=== PATIENT | male | born 1985 | race Caucasian/White ===

== ENCOUNTER 2020-08-16 12:20 | Outpatient (CLI) | payer BC, SELFPAY ==
--- NOTE | ~2020-08-16 | CT_ITS ---
EXAMINATION: CTA chest PE protocol EXAM DATE: 08/16/2020 13:42 INDICATION: Left calf DVT. Dyspnea, shortness of breath. Recent foot surgery. TECHNIQUE: Spiral CTA of the chest (pulmonary arteries) was performed with 100 cc Omnipaque 350 intr avenous contrast injection. Images were acquired during the pulmonary arterial phase. Coronal maxi mum intensity projection 3D-reconstructions were created by the technologist on dedicated workstation . Axial, coronal and sagittal reformatted images were reviewed. The dose-length product (DLP) for t his examination was 608.94 mGy-cm. The exposure was tailored according to patient size (auto mA exp osure control), and iterative reconstruction (ASIR) was used as additional dose reduction technique. There is no prior study for comparison. FINDINGS: There is right lower lobe intralobar pulmonary embolism extending into several segmental p ulmonary arteries. There is right upper lobe segmental pulmonary embolism. Small to moderate clot bur den. No thoracic aortic dissection. The lungs are clear. There are no pleural or pericardial effu sions. Tracheobronchial tree is patent. There is no mediastinal, hilar or axillary lymphadenopath y. There is no pneumothorax. Heart normal in size. No evidence of coronary arterial calcificati on. Upper abdomen is unremarkable. There is thoracic spondylosis without osteoblastic or osteolyti c lesions identified. IMPRESSION: 1. Right-sided interlobar, segmental pulmonary emboli, small to moderate clot burden. 2. No focal airspace disease. I discussed pulmonary emboli with Estuardo Wills MD at 08/16/2020 13:49 CDT. Reviewed, dictated and finalized at location B.
[2020-08-16 13:22] LABS: Estimated Glomerular Filt Rate > 60
== END 2020-08-16 12:21 | disposition home or self-care (01) ==
LOC: CHSIMG 12:26
PROVIDERS: PCP Internal Medicine; Visit Provider Internal Medicine
DX: I82.4Z2 Acute embolism and thrombosis of unspecified deep veins of left distal lower extremity (principal); R06.00 Dyspnea, unspecified
CPT/HCPCS: 71275; Q9965

== ENCOUNTER 2021-03-29 13:20 | Outpatient (CLI) | payer BC, SELFPAY ==
--- NOTE | ~2021-03-29 | XR_ITS ---
XR shoulder LT min 2V DATE: 03/29/2021 14:02 INDICATION: Left shoulder pain for 1.5 months TECHNIQUE: 4 views COMPARISON: None FINDINGS: No fracture or dislocation, periosteal reaction or bone destruction or abnormal soft tissue calcification. IMPRESSION: Negative Reviewed, dictated and finalized at location B. IMPRESSION: Negative
--- NOTE | ~2021-03-29 | CT_ITS ---
EXAMINATION: CTA chest PE protocol EXAM DATE: 03/29/2021 14:34 INDICATION: L shoulder pain, f/u pulmonary embolism from 8mo ago, no chest complaints today. TECHNIQUE: Spiral CTA of the chest (pulmonary arteries) was performed with 100 cc Omnipaque 350 intr avenous contrast injection. Images were acquired during the pulmonary arterial phase. Coronal maxi mum intensity projection 3D-reconstructions were created by the technologist on dedicated workstation . Axial, coronal and sagittal reformatted images were reviewed. The dose-length product (DLP) for t his examination was 508.40 mGy-cm. The exposure was tailored according to patient size (auto mA exp osure control), and iterative reconstruction (ASIR) was used as additional dose reduction technique. Comparison is made to prior examination from 08/16/2020. FINDINGS: Resolution of previously seen right-sided pulmonary emboli. No thoracic aortic dissection . The lungs are clear. There are no pleural or pericardial effusions. Tracheobronchial tree is p atent. There is no mediastinal, hilar or axillary lymphadenopathy. There is no pneumothorax. He art normal in size. No evidence of coronary arterial calcification. Upper abdomen is unremarkable. There is thoracic spondylosis without osteoblastic or osteolytic lesions identified. IMPRESSION: Normal CTA exam. Reviewed, dictated and finalized at location A. IMPRESSION: Normal CTA exam.
[2021-03-29 14:01] LABS: Estimated Glomerular Filt Rate > 60
== END 2021-03-29 13:21 | disposition home or self-care (01) ==
PROVIDERS: PCP Internal Medicine; Visit Provider Internal Medicine
DX: I26.99 Other pulmonary embolism without acute cor pulmonale (principal); M25.512 Pain in left shoulder
CPT/HCPCS: 71275; 73030; Q9967